=== PATIENT | female | born 1955 | race Caucasian/White ===

== ENCOUNTER 2023-08-13 15:20 | Emergency (ER) | payer OTHER, SELFPAY ==
[2023-08-13 15:33] VITALS: BP 156/80; PULSE 68; RESP 18; TEMP 36.2; O2SAT 98; BMI 25.4
--- NOTE | 2023-08-13 16:05 | CT_ITS ---
Patient: DOROTEO VASQUEZ Facility:?[facility] RIS Patient ID:?[id number] Site Patient ID:?[id number]. Site :?[id number] Study:?CT-Abdomen/Pelvis W/O-08/13/2023 4:58:12 PM Ordering Physician:VINH Final Report: INDICATION: Right flank pain TECHNIQUE: Axial images were obtained from the diaphragm to the pubic symphysis. Reformats were obtained in the coronal and sagittal plane. IV Contrast: None Oral Contrast: None COMPARISON: None. FINDINGS: Lower chest: Unremarkable. Liver: Unremarkable. Normal in size and attenuation. No masses. Gallbladder and bile ducts: Unremarkable. No stones or inflammation. No biliary dilatation. Spleen: Unremarkable. Normal in size without mass. Pancreas: Unremarkable. No mass or inflammation. Adrenal glands: Unremarkable. No nodules. Kidneys: Nephrolithiasis with mild right pelvocaliectasis. Obstructing stone at the right ureteropelvic junction measuring 9 x 9 x 9 millimeters as well as a stone just proximal to this measuring 4 x 3 x 3 millimeters. Distal to this the right ureter is decompressed. No hydronephrosis on the left. Vasculature: Unremarkable. GI tract: Minimal hiatal hernia. No dilated loops of large or small intestine. Pelvis: Unremarkable. Bones: Degenerative disc disease L5-S1 IMPRESSION: 1. Nephrolithiasis with mild right pelvicaliectasis and obstructing right ureteropelvic junction stone measuring 9 millimeters. Adjacent stone proximally within the right renal pelvis measuring 4 x 3 x 3 millimeters. 2. Minimal hiatal hernia. Please note that all CT scans at this facility use dose modulation, iterative reconstruction, and/or weight-based dosing when appropriate to reduce radiation dose to as low as reasonably achievable. Dictated by Dain Choi MD @ 08/13/2023 5:44:06 PM Signed by:?Dain Choi MD @08/13/2023 5:44:06 PM (Electronic Signature)
--- NOTE | 2023-08-13 16:24 | ED.ABDPAIN ---
HPI - Abdominal Pain General Chief Complaint: Abdominal Pain Stated Complaint: abdominal pain, passing kidney stones Time Seen by Provider: 08/13/23 15:52 Source: patient Mode of arrival: ambulatory Limitations: no limitations History of Present Illness HPI narrative: 67-year-old female coming in today complaining of abdominal pain that started approximately an hour prior to presentation. Patient was driving home when she felt an uncomfortable sensation in the right flank. The pain became quite intense and then started to radiate around the right side down into the groin. The pain became so intense that she vomited twice. She denies fevers or chills. Nothing seems to make the pain better or worse. She cannot find a comfortable position. Patient states that she noticed blood in her urine 2 days ago but did not think much of it at that time. She states that she has had kidney stones in the past that required surgical intervention, her stones have presented with hematuria and no pain in the past. Past medical history significant for anxiety and TIA. Patient is on atorvastatin and citalopram. Denies intra-abdominal surgery in the past. Related Data Home Medications Medication Instructions Recorded Confirmed atorvastatin 20 mg tablet 20 mg PO DAILY 08/13/23 08/13/23 citalopram 40 mg tablet 40 mg PO DAILY 08/13/23 08/13/23 Allergies Allergy/AdvReac Type Severity Reaction Status Date / Time No Known Drug Allergies Allergy Verified 08/13/23 15:37 Review of Systems Status of ROS Reports: 10 or more systems reviewed and unremarkable except as noted in History and below Exam Narrative: Exam Narrative: Well-nourished well-developed patient in mild distress. Alert and oriented. Answers questions appropriately. Mood and affect are appropriate. Thoughts are goal oriented and rational. No tangential or magical thinking noted. Patient speaks in full sentences without needing to catch her breath. HEENT: Normocephalic atraumatic. Pupils are equally round reactive to light. Extraocular muscles are intact. Conjunctivae are moist without any icterus noted. Moist mucous membranes. Cardiovascular: Heart is regular rate and rhythm S1 and S2 are present without any murmurs. Lungs: Clear to auscultation bilaterally no wheezes rhonchi or rales are appreciated. Patient takes deep breaths without any discomfort. Abdomen: Soft and nondistended with normal bowel sounds. No guarding or rebound. No masses or organomegaly appreciated. Patient does have right-sided CVA discomfort, right lower quadrant tenderness. Extremities: Bilateral lower extremities are without edema. Skin: Well perfused without any obvious rashes. Const: Vital Signs, click to edit/add: Vital Signs - 24 hr 08/13/23 15:33 Temperature 97.2 F L Pulse Rate [Pulse Oximeter] 68 Respiratory Rate 18 Blood Pressure [Ri ght Upper Arm] 156/80 H Pulse Oximetry 98 Oxygen Delivery Me thod Room Air Course Course ED Course: IV is established, normal saline, IV Toradol and Zofran ordered. Labs were drawn. CT scan is ordered. CBC is unremarkable. BMP is unremarkable. LFTs are unremarkable. Normal lipase. CT scan shows a 9 x 9 x 9 mm stone at the right ureteropelvic junction. I did consult with Dr. Damon, who recommended outpatient treatment with close follow-up. I did go discussed with the patient. Of note, she states that her pain is well controlled with the Toradol. She was no longer vomiting and felt significantly better. Given that the patient lives in [place] she would like to go home at this time and follow up in the [facility] where she already has established care with the urology clinic. Vital Signs Vital signs: Initial Vital Signs Temperature 97.2 F L 08/13/23 15:33 Temperature Source Temporal Artery Scan 08/13/23 15:33 Pulse Rate 68 08/13/23 15:33 Respiratory Rate 18 08/13/23 15:33 Blood Pressure 156/80 H 08/13/23 15:33 Blood Pressure Mean 105 08/13/23 15:33 Blood Pressure Position Supine 08/13/23 15:33 Pulse Oximetry 98 08/13/23 15:33 Oxygen Delivery Method Room Air 08/13/23 15:33 Vital Signs Temperature 97.2 F L 08/13/23 15:33 Pulse Rate 68 08/13/23 15:33 Respiratory Rate 18 08/13/23 15:33 Blood Pressure 156/80 H 08/13/23 15:33 Pulse Oximetry 98 08/13/23 15:33 Oxygen Delivery Method Room Air 08/13/23 15:33 Temperature 97.2 F L 08/13/23 15:33 Pulse Rate 68 08/13/23 15:33 Respiratory Rate 18 08/13/23 15:33 Blood Pressure 156/80 H 08/13/23 15:33 Pulse Oximetry 98 08/13/23 15:33 Oxygen Delivery Method Room Air 08/13/23 15:33 Medications Administered Medications: Discontinued Medications Generic Name Dose Route Start Last Admin Trade Name Richard PRN Reason Stop Dose Admin Sodium Chloride 1,000 mls @ 1,000 mls/hr 08/13/23 16:00 08/13/23 17:40 0.9 % Sodium Chloride 1000 Ml IV 08/13/23 16:59 Infused .Q1H ROCCO Infusion Ketorolac Tromethamine 30 mg 08/13/23 15:52 08/13/23 16:36 Ketorolac 30 Mg/Ml Inj IVP 08/13/23 15:53 30 mg ONCE ONE Administration Ondansetron HCl 4 mg 08/13/23 15:52 08/13/23 16:35 Ondansetron 2 Mg/Ml Inj IVP 08/13/23 15:53 4 mg ONCE ONE Administration MDM - Abdominal Pain MDM Narrative Medical decision making narrative: 67-year-old female with kidney stones. Patient will be sent home with Toradol and Zofran. There is no evidence of infection at this time and she is hemodynamically stable so I do think that this is reasonable. She will follow-up with her urologist back at home. Lab Data Attestation: I reviewed the patient's lab results. Labs: Lab Results 08/13/23 Range/Units 16:24 WBC 11.36 H (4.50-11.00) K/uL RBC 4.07 (4.00-5.20) m/uL Hgb 12.4 (12.0-16.0) gm/dL Hct 37.4 (33.0-51.0) % MCV 92 (80-100) fL MCH 31 (26-34) pg MCHC 33 (32-36) gm/dL RDW Coeff of Benny 13.5 (11.5-15.5) % Plt Count 206 (140-440) K/uL Neut % (Auto) 77.8 H (42.0-72.0) % Lymph % (Auto) 15.1 L (20-44) % [place] % (Auto) 5.5 (0.0-11.0) % Eos % (Auto) 1.1 (0.0-7.0) % Baso % (Auto) 0.3 (0.0-3.0) % Neut # (Auto) 8.80 H (1.7-7.0) K/uL Lymph # (Auto) 1.70 (0.90-2.90) K/uL [place] # (Auto) 0.60 (0.00-0.90) K/UL Eos # (Auto) 0.10 (0.00-0.50) K/uL Baso # (Auto) 0.00 (0.00-0.30) K/uL Abs Immat Gran (auto) 0.00 (0.00-0.30) K/uL Imm/Tot Granulo (auto) 0.2 % Sodium 140 (135-149) mmol/L Potassium 3.8 (3.6-5.1) mmol/L Chloride 109 (96-114) mmol/L Carbon Dioxide 26 (20-32) mmol/L Anion Gap 5 L (7-15) mEq/L BUN 16 (7-30) mg/dL Creatinine 0.7 (0.5-1.5) mg/dL Estimated Creat Clear 51.81 Estimated GFR 95 ml/min Glucose 132 H (60-115) mg/dL Calcium 9.4 (8.4-10.6) mg/dL Total Bilirubin 0.6 (0.1-1.5) mg/dL Direct Bilirubin 0.1 (0.0-0.5) mg/dL AST 28 (12-35) U/L ALT 19 (4-35) U/L Alkaline Phosphatase 113 (40-150) U/L Total Protein 7.2 (6.0-8.3) g/dL Albumin 4.4 (3.3-5.0) g/dL Lipase 114 (23-300) U/L Imaging Data CT scan - abdomen: Attestation: I have reviewed the pertinent imaging results. Radiologist's impression: Axial images were obtained from the diaphragm to the pubic symphysis. Reformats were obtained in the coronal and sagittal plane. IV Contrast: None Oral Contrast: None COMPARISON: None. FINDINGS: Lower chest: Unremarkable. Liver: Unremarkable. Normal in size and attenuation. No masses. Gallbladder and bile ducts: Unremarkable. No stones or inflammation. No biliary dilatation. Spleen: Unremarkable. Normal in size without mass. Pancreas: Unremarkable. No mass or inflammation. Adrenal glands: Unremarkable. No nodules. Kidneys: Nephrolithiasis with mild right pelvocaliectasis. Obstructing stone at the right ureteropelvic junction measuring 9 x 9 x 9 millimeters as well as a stone just proximal to this measuring 4 x 3 x 3 millimeters. Distal to this the right ureter is decompressed. No hydronephrosis on the left. Vasculature: Unremarkable. GI tract: Minimal hiatal hernia. No dilated loops of large or small intestine. Pelvis: Unremarkable. Bones: Degenerative disc disease L5-S1 IMPRESSION: 1. Nephrolithiasis with mild right pelvicaliectasis and obstructing right ureteropelvic junction stone measuring 9 millimeters. Adjacent stone proximally within the right renal pelvis measuring 4 x 3 x 3 millimeters. 2. Minimal hiatal hernia. Discharge Plan Discharge Clinical Impression: Calculus of kidney Patient Disposition: Home, Self-Care Condition: Stable Additional Instructions: You have a kidney stone on the right side. This will likely need surgical intervention. You will be sent home with pain medication (Toradol) and nausea medication (Zofran) to take as needed. You do need to follow-up with your urologist back at home this coming week. You should follow-up in your local ER if you develop worsening pain that you cannot control, vomiting or fever. Zofran and Toradol sent to [facility]. Prescriptions: No Action atorvastatin 20 mg tablet 20 mg PO DAILY citalopram 40 mg tablet 40 mg PO DAILY Follow Up/Referrals: Provider,Not a Local [Primary Care Provider] - Stand Alone Forms: [email or web address] Info Instructions
[2023-08-13 16:32] LABS: Basophils Percent Auto 0.3 % (0.0-3.0); Eosinophils Percent Auto 1.1 % (0.0-7.0); Hematocrit 37.4 % (33.0-51.0); Hemoglobin* 12.4 gm/dL (12.0-16.0); Immature Granulocytes Pct Auto 0.2 %; Lymphocytes Percent Auto 15.1 % (20-44); Mean Corpuscular HGB Conc 33 gm/dL (32-36); Mean Corpuscular Hemoglobin 31 pg (26-34); Mean Corpuscular Volume 92 fL (80-100); Monocytes Percent Auto 5.5 % (0.0-11.0); Neutrophils Percent Auto 77.8 % (42.0-72.0); Platelet Count* 206 K/uL (140-440); RDW Coefficient of Variation % 13.5 % (11.5-15.5); Red Blood Count 4.07 m/uL (4.00-5.20); White Blood Count* 11.36 K/uL (4.50-11.00)
[2023-08-13] MEDS: ONDANSETRON 2 MG/ML inj 4 MG IVP (16:35)
[2023-08-13] MEDS: 0.9 % SODIUM CHLORIDE 1000 ml 1,000 ML IV (16:35)
[2023-08-13] MEDS: KETOROLAC 30 MG/ML inj IVP (16:36)
[2023-08-13 16:40] LABS: Slide Review Reflex No
[2023-08-13 16:47] LABS: Albumin* 4.4 g/dL (3.3-5.0)
[2023-08-13 16:48] LABS: Chloride* 109 mmol/L (96-114); Potassium* 3.8 mmol/L (3.6-5.1); Sodium* 140 mmol/L (135-149)
[2023-08-13 16:50] LABS: Anion Gap 5 mEq/L (7-15); Bilirubin Direct* 0.1 mg/dL (0.0-0.5); Bilirubin Total* 0.6 mg/dL (0.1-1.5); Carbon Dioxide* 26 mmol/L (20-32); Creatinine* 0.7 mg/dL (0.5-1.5); Est. Creatinine Clearance* 51.81; Estimated Glomerular Filt Rate 95 ml/min
[2023-08-13 16:51] LABS: Alanine Aminotransferase* 19 U/L (4-35); Alkaline Phosphatase* 113 U/L (40-150); Aspartate Amino Transferase* 28 U/L (12-35); Blood Urea Nitrogen* 16 mg/dL (7-30); Calcium* 9.4 mg/dL (8.4-10.6); Glucose* 132 mg/dL (60-115); Lipase* 114 U/L (23-300); Total Protein* 7.2 g/dL (6.0-8.3)
[2023-08-13 19:23] LABS: Appearance Urine Cloudy (Clear); Bilirubin Urine Negative (Negative); Blood Urine 3+ (Negative); Color Urine Yellow (Yellow); Glucose Urine Negative (Negative); Ketones Urine 1+ (Negative); Leukocyte Esterase Urine Negative (Negative); Nitrite Urine Negative (Negative); Protein Urine Negative (Negative); Specific Gravity Urine 1.025 (1.000-1.030); Urobilinogen Urine 0.2 (0.2-1.0)
[2023-08-13 20:04] LABS: Bacteria Urine Few; Squamous Epithelial Cell Urine Few (None-Few)
== END 2023-08-13 19:33 | disposition home or self-care (01) ==
PROVIDERS: Emergency Provider Family Medicine
DX: N20.0 Calculus of kidney (principal)
CPT/HCPCS: 36415; 74176; 80048; 80076; 81001; 83690; 85025; 87086; 96374; 96375; 99283; 99284; J1885; J2405; J7030